=== PATIENT | female | born 1990 | race Caucasian/White ===

== ENCOUNTER 2016-04-29 13:38 | Emergency (ER) | payer MEDICAID ==
[~2016-04-29] VITALS: Ht 170.2 cm; Wt 59.1 kg
[2016-04-29 14:19] LABS: APPEARANCE,URINE CLOUDY (CLEAR); GLUCOSE, URINE (UA) NEGATIVE (NEGATIVE); KETONES,URINE NEGATIVE (NEGATIVE); LEUKOCYTE ESTERASE ,URINE MODERATE (NEGATIVE); OCCULT BLOOD,URINE MODERATE (NEGATIVE); PROTEIN,URINE NEGATIVE (NEGATIVE)
[2016-04-29 14:21] LABS: ADD UA MICROSCOPIC YES
[2016-04-29 14:23] LABS: INFLUENZA TYPE B NEGATIVE FOR TYPE B (NEGATIVE)
[2016-04-29 14:24] LABS: RBC,URINE 0-2 /HPF (0-2)
[2016-04-29 14:25] LABS: SQUAMOUS EPITHELIAL CELL,UR Moderate /LPF (None Seen); URINALYSIS COMMENT Rare Trich. seen.
[2016-04-29] MEDS ORDERED: MetroNIDAZOLE 500 MG TABLET PO ONE (15:30)
[2016-04-29] MEDS ORDERED: HYDROCODONE/ACETAMINOPHEN 10-325 MG TABLET PO ONE (15:45)
[2016-04-29] MEDS ORDERED: ACETAMINOPHEN 325 MG TABLET PO ONE (16:15)
[2016-04-29 16:48] VITALS: BP 105/76
== END 2016-04-29 16:58 | disposition home or self-care (01) ==
LOC: EMS 13:45
DX: J02.8 Acute pharyngitis due to other specified organisms (principal); B97.89 Other viral agents as the cause of diseases classified elsewhere; R51 Headache; N39.0 Urinary tract infection, site not specified; A59.09 Other urogenital trichomoniasis
CPT/HCPCS: 87086; 87804; 99284

== ENCOUNTER 2016-10-09 18:18 | Emergency (ER) | payer MEDICAID ==
[~2016-10-09] VITALS: Ht 170.2 cm; Wt 61.4 kg
[2016-10-09 19:30] VITALS: BP 109/70
[2016-10-09] MEDS ORDERED: ACETAMINOPHEN/CODEINE 300-30 MG TABLET PO ONE (19:30)
== END 2016-10-09 20:16 | disposition home or self-care (01) ==
LOC: EMS 18:19
DX: N64.4 Mastodynia (principal); N63 Unspecified lump in breast; K02.9 Dental caries, unspecified; F17.210 Nicotine dependence, cigarettes, uncomplicated
CPT/HCPCS: 81025; 99283

== ENCOUNTER 2019-01-02 21:59 | Observation (INO) | payer OTHER ==
[~2019-01-02] VITALS: Ht 170.2 cm; Wt 79.8 kg
[2019-01-02 22:13] VITALS: BP 102/60
[2019-01-03] MEDS ORDERED: RINGERS SOLUTION,LACTATED 1,000 ML IV SCH (00:31)
[2019-01-03] MEDS ORDERED: MAGNESIUM SULFATE 500 ML IV SCH (00:38)
[2019-01-03] MEDS ORDERED: CALCIUM GLUCONATE 100 MG/ML 10 ML IVP PRN (00:45)
[2019-01-03] MEDS ORDERED: AMPICILLIN SODIUM 2 GM/NS 100 ML IV ONE (00:45)
[2019-01-03] MEDS ORDERED: MAGNESIUM SULFATE 4 GM/WATER 100 ML IV ONE (00:45)
[2019-01-03] MEDS ORDERED: AZITHROMYCIN 500 MG/NS 250 ML IV ONE (00:45)
[2019-01-03] MEDS ORDERED: AZITHROMYCIN 250 MG TABLET PO ONE (00:45)
[2019-01-03] MEDS ORDERED: BETAMETHASONE SOLUSPAN 6 MG/ML 5 ML VIAL IM ONE (01:30)
[2019-01-03] MEDS ORDERED: INFLUENZA VIRUS VACCINE QVS 2019-20 (3YR+)/PF 60 MCG/0.5 ML SYRINGE IM ONE (02:45)
== END 2019-01-03 02:20 | disposition short-term general hospital (02) ==
LOC: 4S 22:12
PROVIDERS: ADMIT Obstetrics & Gynecology; ATTEND Obstetrics & Gynecology
DX: O26.853 Spotting complicating pregnancy, third trimester (principal); Z3A.32 32 weeks gestation of pregnancy
CPT/HCPCS: 36415; 80307 ×8; 81002; 89060; 96365; 96366; 96368; 96372; G0378; J0290; J0702; J3475 ×2

== ENCOUNTER 2019-03-11 15:05 | Emergency (ER) | payer OTHER ==
[~2019-03-11] VITALS: Ht 170.2 cm; Wt 75.0 kg
[2019-03-11] MEDS ORDERED: SODIUM CHLORIDE 0.9% 1,000 ML IV ONE (15:45)
[2019-03-11 16:07] LABS: BASOPHILS % (AUTO) 0.3 % (0.0-2.0); EOSINOPHILS % (AUTO) 2.2 % (1.0-6.0); HEMATOCRIT 39.2 % (36-46); HEMOGLOBIN 12.8 g/dL (12.0-16.0); LYMPHOCYTES # (AUTO) 1.9 K/uL (1.0-4.8); LYMPHOCYTES % (AUTO) 39.2 % (22.0-44.0); MEAN CORPUSCULAR HEMOGLOBIN 28.9 pg (26.0-34.0); MEAN CORPUSCULAR HGB CONC 32.6 G/dL (31.0-37.0); MEAN CORPUSCULAR VOLUME 89 fL (80-100); MONOCYTES # (AUTO) 0.5 K/uL (0.1-1.0); NEUTROPHILS # (AUTO) 2.4 K/uL (1.8-7.7); NEUTROPHILS % (AUTO) 47.3 % (40.0-70.0); PLATELET COUNT (AUTO) 255 K/uL (150-450); RED BLOOD CELL COUNT(AUTO) 4.43 MIL/uL (4.00-5.20); RED CELL DISTRIBUTION WIDTH 15.2 % (11.5-14.5)
[2019-03-11 16:34] LABS: ANION GAP 5 mmol/L (8-16); CALCIUM, TOTAL 8.8 mg/dL (8.8-10.5); CARBON DIOXIDE 30 mmol/L (22-29); CHLORIDE 105 mmol/L (98-107); CREATININE 0.88 mg/dL (0.60-1.30); GLOMERULAR FILTR. RATE CALC > 60 mL/min (>60); GLUCOSE,RANDOM 98 mg/dL (70-110); POTASSIUM 4.4 mmol/L (3.5-5.1); SODIUM SERUM 140 mmol/L (136-145); UREA NITROGEN, BLOOD 12 mg/dL (7-18)
[2019-03-11 16:49] LABS: ALANINE AMINOTRANSFERASE 25 U/L (12-78); ALBUMIN 3.2 g/dL (3.4-5.0); ALKALINE PHOSPHATASE 79 U/L (46-116); ASPARTATE AMINOTRANSFERASE 17 U/L (15-37); BILIRUBIN,TOTAL 0.2 mg/dL (0.1-1.0); HCG,QUANTITATIVE < 1 mIU/mL (0-6); THYROID STIMULATING HORMONE 0.33 uIU/mL (0.36-3.74); TOTAL PROTEIN, SERUM 6.3 g/dL (6.4-8.2)
[2019-03-11 17:45] VITALS: BP 118/79
== END 2019-03-11 17:59 | disposition home or self-care (01) ==
LOC: EMS 15:06
DX: N94.6 Dysmenorrhea, unspecified (principal); F17.210 Nicotine dependence, cigarettes, uncomplicated
CPT/HCPCS: 36415; 76830; 76856; 80053; 84443; 84481; 84702; 85025; 86850; 86900; 86901; 99285; J7030